=== PATIENT | female | born 1985 | race Caucasian/White ===

== ENCOUNTER → 2016-10-02 | Outpatient (CLI) | payer MEDICARE, MEDICAID ==
[~2016-10-02] MED LIST: AMOXICILLIN875 MG PO; FLEXERIL10 MG PO; INDERAL10 MG PO; KEFLEX 500MG.500 MG PO; MUCINEX FAST-MA1 TAB PO; NOMEDS XX; PREDNISONE 20MG20 MG PO; SEPTRA DS 800 M1 TAB PO; TESSALON PERLE100 MG PO; VISTARIL25 MG PO; ZITHROMAX Z PA250 MG PO
[2016-10-02 11:20] LABS: BUN 8 mg/dL (7-18)
[2016-10-02 11:23] LABS: GFR (ESTIMATED) 73 ML/MIN (59-)
== END ==
LOC: LAB 10:23
PROVIDERS: Nurse Practitioner Family
DX: K76.0 Fatty (change of) liver, not elsewhere classified (principal)

== ENCOUNTER 2017-01-03 09:35 | Emergency (ER) | payer MEDICARE, MEDICAID ==
[~2017-01-03] VITALS: Ht 167.6 cm; Wt 95.3 kg
[~2017-01-03 09:35] MED LIST changes: +BUPROPION HCL300 MG PO
--- OUTSIDE RECORDS SUMMARY | 2017-01-03 09:43 | External Medical Summary Rpt ---
Author Author , CAIN Roque CAIN Address Unknown Phone [email or web address] [place] Care Team Providers Care Branch Examiner Name Role Phone A Whitney CARRILLO MD PSC, Tera Unavailable Unavailable Whitney CARRILLO MD PSC LAURO MARIA DE JESUS, LAURO Unavailable Unavailable MARIA DE JESUS ELOINA, ELOINA Unavailable Unavailable ADDISON, ADDISON Unavailable Unavailable ADDISON ALL, ADDISON ALL Unavailable Unavailable [facility], Unavailable Unavailable [facility] VLADIMIR, VLADIMIR Unavailable Unavailable FRYMAN EUG, FRYMAN Unavailable Unavailable EUG ELLIS RUDDY, ELLIS Unavailable Unavailable RUDDY [facility] Unavailable Unavailable INC, [facility] Unavailable Unavailable HOSPITAL, [facility] Unavailable Unavailable HOSPITAL P, [facility], Unavailable Unavailable [facility] FRANK BLOUNT, FRANK Unavailable Unavailable NAN ILUYOMADE ROT, Unavailable Unavailable ILUYOMADE ROT [facility] Unavailable Unavailable [facility], [facility] KILPELA JEA, KILPELA Unavailable Unavailable JEA JONES PADMAJA, JONES Unavailable Unavailable PADMAJA JONES PADMAJA, JONES Unavailable Unavailable PADMAJA CELESTE, Unavailable Unavailable CELESTE DUVALL PSC, Unavailable Unavailable CINDI DUVALL PSC [facility] Unavailable Unavailable URGENT TREAT, [facility], Unavailable Unavailable PLL, [facility], [facility] SADEK MOH, FRANK MOH Unavailable Unavailable SEMAJ, SEMAJ Unavailable Unavailable Purpose Continuity of Care Document - 07-04-2014 through 2016 Problems Code Diagnosis DOS Provider Status R945 ABNORMAL 08-11-2016 [facility] LIVER INC FUNCTION STUDIES I10 ESSENTIAL 08-01-2016 [facility] HYPERTENSIO INC N J209 ACUTE 08-01-2016 [facility] BRONCHITIS [facility] UNSPECIFIED INC R05 COUGH 08-01-2016 [facility] Z720 TOBACCO USE 08-01-2016 [facility] INC M5431 SCIATICA 07-30-2016 [facility] RIGHT [facility]IDE [facility] INC N838 OTH 07-30-2016 [facility] NONINFLAMM MEDICAL D/O OVARY [facility]AG[facility] ASS FALLOP TUBE & BROAD LIG N912 AMENORRHEA 07-30-2016 [facility]PECIFIED [facility] Q94675 PAIN IN 06-13-2016 [facility] UNSPECIFIED FOOT Q6689 OTHER 06-13-2016 [facility] SPECIFIED CONGENITAL DEFORMITIES OF FEET K22384 PAIN IN 05-09-2016 SEMAJ UNSPECIFIED LIMB R748 ABNORMAL 04-16-2016 [facility] LEVELS [facility] OTHER SERUM INC ENZYMES R109 UNSPECIFIED 04-07-2016 A Whitney CARRILLO ABDOMINAL PSC PAIN R110 NAUSEA 04-07-2016 A Whitney CARRILLO MD PSC R5383 OTHER 04-07-2016 A Whitney CARRILLO FATIGUE PSC H6092 UNSPECIFIED 03-27-2016 [facility] OTITIS PHYSICIANS EXTERNA GROUP LEFT EAR H6903 PATULOUS 03-27-2016 JONES PADMAJA EUSTACHIAN TUBE BILATERAL H9190 UNSPECIFIED 03-27-2016 [facility] HEARING PHYSICIANS LOSS GROUP UNSPECIFIED EAR H7292 UNS 03-14-2016 [facility] PERFORATION PHYSICIANS OF GROUP TYMPANIC MEMBRANE LT EAR H6690 OTITIS 02-21-2016 [facility] MEDIA [facility] UNSPECIFIED INC UNSPECIFIED EAR J328 OTHER 02-21-2016 [facility] CHRONIC [facility]ICAL SINUSITIS [facility] K5900 CONSTIPATIO 07-15-2015 [facility] N [facility], UNSPECIFIED PLLC H9202 OTALGIA 07-14-2015 [facility] LEFT EAR [facility] INC N390 URINARY 07-14-2015 [facility] TRACT [facility]YSICIANS, INFECTION PLLC SITE NOT SPECIFIED R1084 GENERALIZED 07-14-2015 [facility] ABDOMINAL PHYSICIANS, PAIN PLLC R000 TACHYCARDIA 06-25-2015 A Whitney CARRILLO MD PSC UNSPECIFIED R208 OTHER 06-25-2015 A Whitney OWENS MD PSC S OF SKIN SENSATION Q41452 ENCOUNTER 06-25-2015 A Whitney ISIDRO MD PSC SCREENING FOR LIPOID DISORDERS R1030 LOWER 04-10-2015 [facility]BD[facility]INAL [facility] PAIN [facility] UNSPECIFIED 6918 OTHER 01-30-2015 [facility] [place] DERMATITIS URGENT AND RELATED TREAT CONDITIONS 7820 DISTURBANCE 01-30-2015 [facility] OF SKIN COUNT INCLUDES THE [facility] SENSATION URGENT TREAT 7821 RASH AND 01-30-2015 [facility] LOPES COUNT INCLUDES THE [facility] NONSPECIFIC URGENT SKIN TREAT ERUPTION 7244 THORACIC/RODNEY 01-21-2015 [facility] NEURITIS/RA DICULITIS UNSPEC 92431 ACUTE 09-25-2014 [facility] MEDIA 4659 ACUTE URIS 07-06-2014 [facility] P SITE 7862 COUGH 07-06-2014 [facility] P J40 BRONCHITIS, NOT SPECIFIED ACUTE OR CHRONIC R10.9 UNSPECIFIED ABDOMINAL PAIN Medications Na ND Rx Da Fi Fi Am Da Di Ph RX Ph St me C No te ll ll ou ys ag ar # ys at rm s nt no ma ic us Or Da si cy ia de te s n re d BE 69 03 04 15 5 00 HO Ac NZ 38 -1 -0 .0 00 ME ti ON 70 0- 7- 00 06 TO ve AT 11 20 20 08 WN AT 90 17 17 30 E 5 72 PH 10 AR 0 MA MG CY CA OF PS UL CY E NT HI AN A Results Labs Lab Lab Date Result Refere Interp Status Commen Order Detail nces retati t Range on CHLAMYDIA AND GONORRHEA TESTING (07-04-2014 12:00) Chlamyd NEGATIV complet ia 015 E ed trachom 12:00 atis rRNA [Presen ce] in Unspeci fied specime n by Probe & target amplifi cation method Neisser NEGATIV complet ia 015 E ed gonorrh 12:00 oeae rRNA [Presen ce] in Unspeci fied specime n by Probe & target amplifi cation method CHLAMYDIA AND GONORRHEA TESTING (07-04-2014 12:00) COLLECT M.Lonnie complet OR 015 EAGLE, ed 12:00 MENTAL HEALTH WORKER ETHNICI WHITE, complet TY 015 NON-HIS ed 12:00 PANIC KIT complet EXPIRAT 015 015 ed ION 12:00 DATE SYMPTOM NO complet S 015 ed 12:00 REASON INITIAL complet FOR 015 FAMILY ed REQUEST 12:00 PLANNIN G VISIT SPECIME FEMALE complet N 015 ENDOCER ed SOURCE 12:00 VICAL PREGNAN NO complet T 015 ed 12:00 CHART 521-93- complet NUMBER [id number] ed 12:00 Chlamyd Pending complet ia 015 ed trachom 12:00 atis rRNA [Presen ce] in Unspeci fied specime n by Probe & target amplifi cation method Neisser Pending complet ia 015 ed gonorrh 12:00 oeae rRNA [Presen ce] in Unspeci fied specime n by Probe & target amplifi cation method Treponema pallidum IgG Ab [Presence] in Serum by Immunoassay (07-04-2014 11:00) Trepone NON-CLYDE complet ma 015 CTIVE ed pallidu 11:00 m IgG Ab [Presen ce] in Serum by Immunoa ssay Treponema pallidum IgG Ab [Presence] in Serum by Immunoassay (07-04-2014 11:00) COLLECT A. complet OR 015 HILARY, ed 11:00 RN ETHNICI WHITE complet TY 015 ed 11:00 PURPOSE ROUTINE complet OF 015 ed EXAM 11:00 SPECIME BLOOD complet N 015 ed SOURCE 11:00 CHART 521-93- complet NUMBER [id number] ed 11:00 Trepone Pending complet ma 015 ed pallidu 11:00 m IgG Ab [Presen ce] in Serum by Immunoa ssay Procedures Procedure DOS Code Location Performer Comment APPL 52835 [facility]/> AREAS INC INC ULTRASOUN D EA 15 MIN APPLICATI 53107 [facility] ON 7 [facility] MODALITY INC INC 1/> AREAS HOT/COLD PACKS APPL 41061 [facility] 1/> AREAS INC INC TRACTION MECHANICA L APPL 65555 [facility] MODALITY 7 [facility]/> AREAS INC [place] 159[address] [facility] ABDOMINAL 7 [facility] REAL INC INC TIME W/IMAGE LIMITED THERAPEUT 72406 [facility] ANDERS[facility] IC PX 1/> 7 [facility] AREAS INC INC EACH 15 MIN EXERCISES APPL 28509 [facility] MODALITY 7 [facility] 1/> AREAS INC INC ELEC STIMJ UNATTENDE D APPL 59051 [facility] MODALITY 7 [facility] 1/> AREAS INC INC TRACTION MECHANICA L APPLICATI 26402 [facility]ERSEN ON 7 [facility] MODALITY INC INC 1/> AREAS HOT/COLD PACKS APPL 59046 G[facility]ESH [facility] MODALITY 7 [facility] 1/> AREAS INC INC ULTRASOUN D EA 15 MIN RADIOLOGI 88635 [facility] ARSENIO C EXAM 7 [facility] CHEST 2 INC VIEWS FRONTAL&L ATERAL IAADI 07908 [facility] INFLUENZA 7 [facility] B VIRUS INC INC IAADI 98650 [facility] INFFLUENZ 7 [facility] A A VIRUS INC INC RADIOLOGI 71913 [place] [facility] 7 MEDICAL EXAMINATI IMAGING ON CHEST ASS SINGLE VIEW FRONTAL URINE 15344 [facility] 7 [facility] TEST INC INC VISUAL COLOR CMPRSN METHS PHYSICAL 74889 [facility] THERAPY 7 [facility] EVALUATIO INC INC N [place] COM[place] [address] [place] [address] [place] [facility] TRANSVAGI 7 MEDICAL NAL IMAGING ASS THERAPEUT 94680 G[facility] G[facility]ESH IC PX 1/> 7 [facility] AREAS INC INC EACH 15 MIN EXERCISES APPLICATI 93334 [facility] ANDERSEN ON 7 [facility] MODALITY INC INC 1/> AREAS HOT/COLD PACKS APPL 34662 [facility] MODALITY 7 [facility] 1/> AREAS INC INC ELEC STIMJ UNATTENDE D RADEX 54691 SEMAJ DUVALL FOOT 6 COMPLETE MINIMUM 3 VIEWS ANKLE L1902 CINDI Olson ORTH 6 ELOINA DUVALL ANKLE PSC PSC GAUNT/[place] [address] [facility] ABDOMINAL 6 [facility] REAL INC INC TIME W/IMAGE LIMITED URINE 73895 A C KILPELA 6 [place] DIS[place] JEA TEST PSC VISUAL COLOR CMPRSN METHS LIPID 67484 A C KILPELA PANEL 6 [place] DIS[place] JEA PSC HEMOGLOBI 73990 A C KILPELA N 6 [place] DIS[place] JETera GLYCOSYLA PSC JOSEPH A1C COMPRE 70414 KAREN JONES AUDIOMETR 6 PADMAJA PADMAJA Y THRESHOLD EVAL SP RECOGNIJ TYMPANOME 70303 KAREN JONES TRY [address] [place] [address] [facility] ADDISON ALL MAXILLOFA 6 MEDICAL CIAL W/[place] [address] [facility] AD[facility] ALL TRANSVAGI 6 MEDICAL NAL IMAGING ASS PATIENT G8784 [facility] MARIE MOH NOT 6 PHYSICIAN ELIGBL S, PLLC E.G. PT REFUSES URGENT/EM SIT PATIENT G8784 [facility] CORRAL NOT 6 PHYSICIAN RUDDY ELIGBL S, PLLC E.G. PT REFUSES URGENT/[place] [address] [facility] THYROID 6 [facility] STIMULATI INC INC NG HORMONE TSH COMPREHEN 34940 [facility] SIVE 6 [facility] [address] [facility] AMYLASE 6 [place] [address] [facility]ERS[facility] LIPASE 6 [facility] INC INC RADEX ABD 08984 SCOTT ADDISON ALL COMPL 6 MEDICAL AQT ABD IMAGING W/S/E/D ASS VIEWS [address] [place] [address] [facility] THYROXINE 6 [facility] TOTAL INC INC CULTURE 90109 [facility] BACTERIAL 6 [facility] INC INC QUANTTATI VE COLONY COUNT URINE URNLS DIP 90909 [facility]EN 6 [facility] STICK/TAB INC INC LET REAGENT AUTO MICROSCOP Y BLOOD 61177 [facility] COUNT 6 [facility] COMPLETE INC INC AUTO&AUTO DIFRNTL WBC LIPOPROTE 84327 A C FUNMILAYO IN DIR 6 [place] DAVILA IVORY HIGH PSC DENSITY CHOLESTER OL CHOLESTER 50010 A C KILPELA OL 6 [place] DAVIL[place] SERUM/WHO PSC LE BLOOD TOTAL GLUCOSE 31027 A C KILPELA QUANTITAT 6 [place] DAVILA BHARGAVI BLOOD PSC XCPT REAGENT STRIP HEMOGLOBI 16996 A C KILPELA N 6 [place] DAVILA GLYCOSYLA PSC JOSEHP A1C MOST 3044F A C KILPELA RECENT 6 [place] DISLA JETera HEMOGLOBI PSC N A1C LEVEL < 7.0% TRANSFERA 11946 A C KILPELA SE 6 [place] DAV[place] ASPARTATE PSC AMINO AST SGOT TRANSFERA 84202 A C KILPELA SE 6 [place] DAVIL[place] [address] A C KILPELA TRIGLYCER 6 [place] DISLA JETera IDES PSC COLLECTIO 87744 A C KILPELA N VENOUS 6 [place] [address] [facility] AMYLASE 5 [facility] INC INC COMPREHEN 26595 [facility] ANDERSEN SIVE 5 [facility] [place] [address] [place] [facility] ALL ABDOMEN & 5 MEDICAL PELVIS IMAGING W/[place] [address] G[facility] ANDERSEN LIPASE 5 [facility] INC INC BLOOD 45914 [facility] ANDERSEN COUNT 5 [facility] COMPLETE INC INC AUTO&AUTO DIFRNTL WBC URNLS DIP 53896 [facility] ANDERSEN 5 [facility] STICK/TAB INC INC LET REAGENT AUTO MICROSCOP Y URINE 22061 [facility] ANDERSEN 5 [facility] TEST INC INC VISUAL COLOR CMPRSN METHS CT LUMBAR 92032 [facility] [place] [facility] SPINE 5 RADIOLOGY MARIA DE JESUS W/O CONTRAST MATERIAL Encounters Encounter Start End Date Code Location Performer Type Date HOSPITAL [facility] - Angella 7 [facility] T EMERGENCY 54482 G[facility]ESH CESAR 7 7 [facility] T VISIT [facility]OW/MODER SEVERITY HOSPITAL [facility] Perales 7 [facility]erales [facility] T OFFICE 57989 SEMAJ DUVALL [facility] 7 7 T VISIT 15 MINUTES OFFICE 73270 SEMAJ DUVALL OUTPATIEN 6 6 T NEW 30 MINUTES HOSPITAL GANESH - 6 6 [facility] OUTPATIEN INC T OFFICE 55447 Tera Whitney MELLO OUTPATIEN 6 6 [place] DAVILA T VISIT PSC 25 MINUTES OFFICE 14328 [facility] JONES OUTPATIEN 6 6 PHYSICIAN PADMAJA T VISIT S GROUP 10 MINUTES OFFICE 56931 [facility] JONES OUTPATIEN 6 6 PHYSICIAN PADMAJA T VISIT S GROUP 10 MINUTES HOSPITAL G[facility]ESH - 6 6 [facility] OUTPATIEN INC T HOSPITAL GANESH - 6 6 [facility] OUTPATIEN INC T EMERGENCY 79791 [facility] 6 6 PHYSICIAN DEPARTMEN [facility] T VISIT MODERATE SEVERITY EMERGENCY 92495 G[facility]ESH 6 6 [facility] DEPARTMEN [facility] T VISIT LOW/MODER SEVERITY HOSPITAL GANESH - 6 6 [facility] OUTPATIEN INC T EMERGENCY 00292 [facility] RUDDY VISIT [facility] Tera Whitney MELLO OUTPATIEN 6 6 [place] DISLA CECILIATera T NEW PSC MINUTES HOSPITAL GANESH - 5 5 [facility] OUTPATIEN INC T EMERGENCY 48665 [facility] 5 5 [facility] DEPARTMEN [facility] T VISIT MODERATE SEVERITY OFFICE 38228 [facility] OUTPATIEN 5 5 [facility] OFF[facility] 34548 G[facility]ESH JAY OUTPATIEN 5 5 [facility] MINUTES HOSPITAL GANESH - 5 5 [facility] OUTPATIEN INC T EMERGENCY 72846 [facility]ESH 5 5 [facility] DEPARTMEN [facility] T VISIT LOW/MODER SEVERITY EMERGENCY 76974 GANESH TAMAYO 5 5 [facility] T VISIT P LIMITED/M INOR PROB
--- OUTSIDE RECORDS SUMMARY | 2017-01-03 09:43 | External Medical Summary Rpt ---
Author Author , CAIN Roque CAIN Address Unknown Phone [email or web address] Care Team Providers Care Digital Community Manager Name Role Phone A Whitney CARRILLO MD [...] ELLIS RUDDY, ELLIS Unavailable Unavailable RUDDY [facility] Unavailable Unavailable INC, [facility] Unavailable Unavailable HOSPITAL, [facility] Unavailable Unavailable HOSPITAL P, [facility] P [facility], Unavailable Unavailable [facility] FRANK BLOUNT, FRANK Unavailable Unavailable NAN ILUYOMADE ROT, Unavailable Unavailable ILUYOMADE ROT [facility] Unavailable Unavailable IMAGING ASS, [facility] KILPELA JEA, KILPELA Unavailable Unavailable JEA JONES PADMAJA, JONES Unavailable Unavailable PADMAJA JONES PADMAJA, JONES Unavailable Unavailable PADMAJA CELESTE, Unavailable Unavailable CELESTE DUVALL [facility], Unavailable Unavailable CINDI DUVALL PSC [facility] Unavailable Unavailable URGENT TREAT, [facility], Unavailable Unavailable PLL, [facility], [facility] SADEK MOH, FRANK MOH Unavailable Unavailable SEMAJ, SEMAJ Unavailable Unavailable Purpose Continuity of Care Document - 07-04-2014 through 2016 Problems Code Diagnosis DOS Provider Status R945 ABNORMAL 08-11-2016 [facility] LIVER INC FUNCTION STUDIES I10 ESSENTIAL 08-01-2016 [facility] PRIMARY [facility] HYPERTENSIO INC N J209 ACUTE 08-01-2016 [facility] BRONCHITIS [facility] UNSPECIFIED INC R05 COUGH 08-01-2016 [facility] Z720 TOBACCO USE 08-01-2016 [facility] INC M5431 SCIATICA 07-30-2016 [facility] RIGHT SIDE [facility] INC N838 OTH 07-30-2016 [facility] NONINFLAMM MEDICAL D/O OVARY IMAGING ASS FALLOP TUBE & BROAD LIG N912 AMENORRHEA 07-30-2016 [facility] UNSPECIFIED [facility] IMAGING ASS P01251 PAIN IN 06-13-2016 SEMAJ UNSPECIFIED FOOT Q6689 OTHER 06-13-2016 SEMAJ SPECIFIED CONGENITAL DEFORMITIES OF FEET H42741 PAIN IN 05-09-2016 SEMAJ UNSPECIFIED LIMB R748 ABNORMAL 04-16-2016 [facility] LEVELS OF [facility] OTHER SERUM INC ENZYMES R109 UNSPECIFIED 04-07-2016 A Whitney CARRILLO ABDOMINAL PSC PAIN R110 NAUSEA 04-07-2016 A Whitney CARRILLO MD PSC R5383 OTHER 04-07-2016 A Whitney CARRILLO FATIGUE PSC H6092 UNSPECIFIED 03-27-2016 [facility] OTITIS PHYSICIANS EXTERNA GROUP LEFT EAR H6903 PATULOUS 03-27-2016 JONES PADMAJA EUSTACHIAN TUBE BILATERAL H9190 UNSPECIFIED 03-27-2016 [facility] HEARING PHYSICIANS LOSS GROUP UNSPECIFIED EAR H7292 UNS 03-14-2016 [facility] PERFORATION PHYSICIANS OF GROUP TYMPANIC MEMBRANE LT EAR H6690 OTITIS 02-21-2016 [facility] MEDIA [facility] UNSPECIFIED INC UNSPECIFIED EAR J328 OTHER 02-21-2016 [facility] CHRONIC MEDICAL SINUSITIS IMAGING ASS K5900 CONSTIPATIO 07-15-2015 [facility] N [facility], UNSPECIFIED PLLC H9202 OTALGIA 07-14-2015 [facility] LEFT EAR [facility] INC N390 URINARY 07-14-2015 [facility] TRACT [facility]YSIC[facility]ANS, INFECTION PLLC SITE NOT SPECIFIED R1084 GENERALIZED 07-14-2015 [facility] ABDOMINAL [facility]ICIANS, PAIN PLLC R000 TACHYCARDIA 06-25-2015 A Whitney CARRILLO MD PSC UNSPECIFIED R208 OTHER 06-25-2015 A Whitney OWENS MD PSC S OF SKIN SENSATION I46620 ENCOUNTER 06-25-2015 A Whitney ISIDRO MD PSC SCREENING FOR LIPOID DISORDERS R1030 LOWER 04-10-2015 [facility] ABDOMINAL [facility]ICAL PAIN IMAGING ASS UNSPECIFIED 6918 OTHER 01-30-2015 [facility] DERMATITIS URGENT AND RELATED TREAT CONDITIONS 7820 DISTURBANCE 01-30-2015 [facility] OF SKIN [facility] SENSATION URGENT TREAT 7821 RASH AND 01-30-2015 [facility] [place] [facility] NONSPECIFIC URGENT SKIN TREAT ERUPTION 7244 THORACIC/RODNEY 01-21-2015 [facility] [place] [facility] NEURITIS/RA DICULITIS UNSPEC 87798 ACUTE 09-25-2014 [facility] MEDIA 4659 ACUTE URIS 07-06-2014 [facility] UNSPECIFIED HOSPITAL P SITE 7862 COUGH 07-06-2014 [facility] P J40 BRONCHITIS, NOT SPECIFIED ACUTE OR [...] M.Lonnie complet OR 015 [place]AGLE, ed 12:00 MANAGER FRONT ETHNICI WHITE, complet TY 015 NON-HIS ed [...] Procedure DOS Code Location Performer Comment APPL 19921 [facility] MODALITY 7 [facility] 1/> AREAS INC INC ULTRASOUN D EA 15 MIN APPLICATI 16703 G[facility]ESH ANDERSEN ON 7 [facility] MODALITY INC INC 1/> AREAS HOT/COLD PACKS APPL 33726 G[facility]ESH ANDERSEN MODALITY 7 [facility] 1/> AREAS INC INC TRACTION MECHANICA L APPL 18168 G[facility]ESH ANDERSEN MODALITY 7 [facility] 1/> AREAS INC [place] [address] GANESH ANDERSEN ABDOMINAL 7 [facility] REAL INC INC TIME W/IMAGE LIMITED THERAPEUT 32093 GANESH ANDERSEN IC PX 1/> 7 [facility] AREAS INC INC EACH 15 MIN EXERCISES APPL 49959 G[facility]ESH ANDERSEN MODALITY 7 [facility] 1/> AREAS INC INC ELEC STIMJ UNATTENDE D APPL 76632 GANESH ANDERSEN MODALITY 7 [facility] 1/> AREAS INC INC TRACTION MECHANICA L APPLICATI 57734 GANESH ANDERSEN ON 7 [facility] MODALITY INC INC 1/> AREAS HOT/COLD PACKS APPL 52036 GANESH GANESH MODALITY 7 [facility] 1/> AREAS INC INC ULTRASOUN D EA 15 MIN RADIOLOGI 10736 GANESH ARSENIO C EXAM 7 [facility] CHEST 2 INC VIEWS FRONTAL&L ATERAL IAADI 01061 GANESH GANESH INFLUENZA 7 [facility] B VIRUS INC INC IAADI 01176 GANESH ANDERSEN INFFLUENZ 7 [facility] A A VIRUS INC INC RADIOLOGI 27593 [facility] ADDISON C 7 MEDICAL EXAMINATI IMAGING ON CHEST ASS SINGLE VIEW FRONTAL URINE 70459 GANESH ANDERSEN 7 [facility] TEST INC INC VISUAL COLOR CMPRSN METHS PHYSICAL 33883 GANESH ANDERSEN THERAPY 7 [facility] EVALUATIO INC INC N MOD COMPLEX [address] [place] [address] [facility] VLADIMIR TRANSVAGI 7 MEDICAL NAL IMAGING ASS THERAPEUT 26476 GANESH GANESH IC PX 1/> 7 [facility] AREAS INC INC EACH 15 MIN EXERCISES APPLICATI 68575 GANESH ANDERSEN ON 7 [facility] MODALITY INC INC 1/> AREAS HOT/COLD PACKS APPL 76136 GANESH ANDERSEN MODALITY 7 [facility] 1/> AREAS INC INC ELEC STIMJ UNATTENDE D RADEX 71321 SEMAJ DUVALL FOOT 6 COMPLETE MINIMUM 3 VIEWS ANKLE L1902 CINDI Olson ORTH 6 ELOINA DUVALL ANKLE PSC PSC GAUNT/[place] [address] GANESH ANDERSEN ABDOMINAL 6 [facility] REAL INC INC TIME W/IMAGE LIMITED URINE 88902 A C KILPELA 6 [place] DISLA JEA TEST PSC VISUAL COLOR CMPRSN METHS LIPID 64372 A C KILPELA PANEL 6 [place] DISLA JEA PSC HEMOGLOBI 42665 A C KILPELA N 6 [place]ORENA DISLA JETera GLYCOSYLA PSC JOSEPH A1C COMPRE 66241 KAREN JONES AUDIOMETR 6 PADMAJA PADMAJA Y THRESHOLD EVAL SP RECOGNIJ TYMPANOME 28480 KAREN JONES TRY [address] [place] [address] SCOTT ADDISON ALL MAXILLOFA 6 MEDICAL CIAL W/[place] [address] SCOTT ADDISON ALL TRANSVAGI 6 MEDICAL NAL IMAGING ASS PATIENT G8784 [facility] MARIE MOH NOT 6 [facility]YSICIAN ELIGBL S, PLL[facility] E.G. PT REFUSES URGENT/EM SIT PATIENT G8784 [facility] CORRAL NOT 6 PHYSICIAN RUDDY ELIGBL S, PLLC E.G. PT REFUSES URGENT/[place] [address] GANESH ANDERSEN THYROID 6 [facility] STIMULATI INC INC NG HORMONE TSH COMPREHEN 54977 GANESH ANDERSEN SIVE 6 [facility] [place] [address] GANESH ANDERSEN AMYLASE 6 [place] [address] GANESH ANDERSEN LIPASE 6 [facility] INC INC RADEX ABD 31122 SCOTT ADDISON ALL COMPL 6 MEDICAL AQT ABD IMAGING W/S/E/D ASS VIEWS [address] [place] [address] GANESH ANDERSEN THYROXINE 6 [facility] TOTAL INC INC CULTURE 34964 GANESH ANDERSEN BACTERIAL 6 [facility] INC INC QUANTTATI VE COLONY COUNT URINE URNLS DIP 27946 G[facility]ESH ANDERSEN 6 [facility] STICK/TAB INC INC LET REAGENT AUTO MICROSCOP Y BLOOD 37231 GANESH ANDERSEN COUNT 6 [facility] COMPLETE INC INC AUTO&AUTO DIFRNTL WBC LIPOPROTE 75227 A C FUNMILAYO IN DIR 6 LORENA DAVILA IVORY HIGH PSC DENSITY CHOLESTER OL CHOLESTER 82033 A C KILPELA OL 6 [place] DAVILA SERUM/WHO PSC LE BLOOD TOTAL GLUCOSE 12149 A C KILPELA QUANTITAT 6 [facility]ORE[place] DAVILA BHARGAVI BLOOD PSC XCPT REAGENT STRIP HEMOGLOBI 16217 A C KILPELA N 6 LORENA DAVILA GLYCOSYLA PSC JOSEPH A1C MOST 3044F A C KILPELA RECENT 6 [place] DISLA JETera HEMOGLOBI PSC N A1C LEVEL < 7.0% TRANSFERA 34888 A C KILPELA SE 6 [facility] DAVILA ASPARTATE PSC AMINO AST SGOT TRANSFERA 30806 A C KILPELA SE 6 LORENA DAVILA [place] [address] A C KILPELA TRIGLYCER 6 LORENA DISLA JETera IDES PSC COLLECTIO 64907 A C KILPELA N VENOUS 6 LORENA DAVIL[place] [address] GANESH ANDERSEN AMYLASE 5 [facility] INC INC COMPREHEN 73954 GANESH ANDERSEN SIVE 5 [facility] [place] [address] [facility] ADDISON ALL ABDOMEN & 5 MEDICAL PELVIS IMAGING W/[place] [address] GANESH ANDERSEN LIPASE 5 [facility]OS[facility] INC INC BLOOD 15677 GANESH ANDERSEN COUNT 5 [facility] COMPLETE INC INC AUTO&AUTO DIFRNTL WBC URNLS DIP 89517 GANESH ANDERSEN 5 [facility]OS[facility] STICK/TAB INC INC LET REAGENT AUTO MICROSCOP Y URINE 11655 GANESH ANDERSEN 5 [facility] TEST INC INC VISUAL COLOR CMPRSN METHS CT LUMBAR 29180 [facility] [place] [facility] SPINE 5 RADIOLOGY MARIA DE JESUS W/O CONTRAST MATERIAL Encounters Encounter Start End Date Code Location Performer Type Date HOSPITAL G[facility]ESH - Angella 7 [facility] T EMERGENCY 90165 GANESH CESAR 7 7 [facility] T VISIT LOW/MODER SEVERITY HOSPITAL GANESH Perales 7 [facility] GANESH Perales 7 [facility] T OFFICE 07115 SEMAJ DUVALL [facility] 7 7 T VISIT 15 MINUTES OFFICE 69665 SEMAJ DUVALL OUTPATIEN 6 6 T NEW 30 MINUTES HOSPITAL GANESH - 6 6 [facility] OUTPATIEN INC T OFFICE 00436 Tera Whitney MELLO OUTPATIEN 6 6 LORENA DAVILA T VISIT PSC 25 MINUTES OFFICE 55723 [facility] JONES OUTPATIEN 6 6 PHYSICIAN PADMAJA T VISIT S GROUP 10 MINUTES OFFICE 06946 [facility] JONES OUTPATIEN 6 6 PHYSICIAN PADMAJA T VISIT S GROUP 10 MINUTES HOSPITAL GANESH - 6 6 [facility] OUTPATIEN INC T HOSPITAL GANESH - 6 6 [facility] OUTPATIEN INC T EMERGENCY 72756 [facility] MARIE [facility] 6 6 PHYSICIAN DEPARTMEN [facility] T VISIT MODERATE SEVERITY EMERGENCY 50495 GANESH 6 6 [facility]PARTMEN [facility] T VISIT LOW/MODER SEVERITY HOSPITAL GANESH - 6 6 [facility] OUTPATIEN INC T EMERGENCY 14465 [facility]IAN RUDDY VISIT [facility] HIGH SEVERITY& [facility] Tera Whitney MELLO OUTPATIEN 6 6 [place]NA DISLA CECILIATera T NEW PSC MINUTES HOSPITAL GANESH - 5 5 [facility] OUTPATIEN INC T EMERGENCY 25156 GANESH 5 5 [facility] DEPARTMEN [facility] T VISIT MODERATE SEVERITY OFFICE 34112 [facility] MARIE [facility] 5 5 [facility] URGENT MINUTES TREAT OFFICE 80793 GANESH JAY OUTPATIEN 5 5 [facility] NEW 20 HOSPITAL MINUTES HOSPITAL GANESH - 5 5 [facility] OUTPATIEN INC T EMERGENCY 86561 GANESH 5 5 [facility] DEPARTMEN [facility] T VISIT LOW/MODER SEVERITY EMERGENCY 34367 GANESH TAMAYO 5 5 [facility] T VISIT P LIMITED/M INOR PROB
--- OUTSIDE RECORDS SUMMARY | 2017-01-03 09:44 | External Medical Summary Rpt ---
Author Author , CAIN Roque CAIN Address Unknown Phone [email or web address] Care Team Providers Care Hat Copyist Name Role Phone A Whitney CARRILLO MD PSC, Tera Unavailable Unavailable Whitney CARRILLO MD PSC LAURO MARIA DE JESUS, LAURO Unavailable Unavailable ELOINA COLLINS Unavailable Unavailable ADDISON, ADDISON Unavailable Unavailable [facility], Unavailable Unavailable [facility] FRYMAN EUG, FRYMAN Unavailable Unavailable EUG ELLIS RUDDY, ELLIS Unavailable Unavailable RUDDY [facility] Unavailable Unavailable INC, [facility] Unavailable Unavailable HOSPITAL, [facility] Unavailable Unavailable HOSPITAL P, [facility] P [facility], Unavailable Unavailable [facility] FRANK BLOUNT, FRANK Unavailable Unavailable NAN ILUYOMADE ROT, Unavailable Unavailable ILUYOMADE ROT [facility] Unavailable Unavailable IMAGING ASS, [facility] KILPELA JEA, KILPELA Unavailable Unavailable JEA JONES PADMAJA, JONES Unavailable Unavailable PADMAJA JONES PADMAJA, JONES Unavailable Unavailable PADMAJA ARSENIOKENJI, Unavailable Unavailable ARSENIOKENJI DUVALL P[facility], Unavailable Unavailable CINDI DUVALL PSC [facility] Unavailable Unavailable URGENT TREAT, [facility]RGENT [facility], Unavailable Unavailable PLL, [facility], [facility] SADEK MOH, SADEK MOH Unavailable Unavailable SEMAJ, SEMAJ Unavailable Unavailable Purpose Continuity of Care Document - 07-06-2014 through 2016 Problems Code Diagnosis DOS Provider [...] AMENORRHEA 07-30-2016 [facility] UNSPECIFIED [facility] IM[facility]ING ASS [id number] PAIN IN 06-13-2016 SEMAJ UNSPECIFIED FOOT Q6689 OTHER 06-13-2016 SEMAJ SPECIFIED CONGENITAL DEFORMITIES OF FEET E61101 PAIN IN 05-09-2016 SEMAJ UNSPECIFIED LIMB R748 ABNORMAL 04-16-2016 [facility] LEVELS OF MEM [facility]OS[facility] OTHER SERUM INC ENZYMES R109 UNSPECIFIED 04-07-2016 A Whitney CARRILLO ABDOMINAL PSC PAIN R110 NAUSEA 04-07-2016 A Whitney CARRILLO MD PSC R5383 OTHER 04-07-2016 A Whitney CARRILLO FATIGUE PSC H6092 UNSPECIFIED 03-27-2016 [facility] OTITIS PHYSICIANS EXTERNA GROUP LEFT EAR H6903 PATULOUS 03-27-2016 JONES PADMAJA EUSTACHIAN TUBE BILATERAL H9190 UNSPECIFIED 03-27-2016 [facility] HEARING PHYSICIANS LOSS GROUP UNSPECIFIED EAR H7292 UNS 03-14-2016 [facility] PERFORATION PHYSICIANS OF GROUP TYMPANIC MEMBRANE [...] OWENS MD PSC S OF SKIN SENSATION N78550 ENCOUNTER 06-25-2015 A Whitney ISIDRO MD PSC SCREENING FOR LIPOID DISORDERS R1030 LOWER 04-10-2015 [facility] ABDOMINAL [facility] PAIN IMAGING ASS UNSPECIFIED 6918 OTHER 01-30-2015 [facility] DERMATITIS URGENT AND RELATED TREAT CONDITIONS 7820 DISTURBANCE 01-30-2015 [facility] 7821 RASH AND [facility]-30-[facility] ERUPTION 7244 THORACIC/RODNEY 01-21-2015 [facility] NEURITIS/RA DICULITIS UNSPEC 06041 ACUTE 09-25-2014 [facility] MEDIA 4659 ACUTE URIS 07-06-2014 [facility] HOSPITAL P SITE 7862 COUGH 07-06-2014 [facility] P Medications Na ND Rx Da Fi Fi [...] UL CY E NT HI AN A Procedures Procedure DOS Code Location Performer Comment APPL 84002 G[facility]ESH ANDERSEN MODALITY 7 [facility] 1/> AREAS INC INC TRACTION MECHANICA L APPL 42217 GANESH ANDERSEN MODALITY 7 [facility] 1/> AREAS INC INC ELEC STIMJ UNATTENDE D APPLICATI 01322 GANESH ANDERSEN ON 7 [facility] MODALITY INC INC 1/> AREAS HOT/COLD PACKS APPL 10942 GNAESH ANDERSEN MODALITY 7 [facility] 1/> AREAS INC INC ULTRASOUN D EA 15 [place] [address] GANESH ANDERSEN ABDOMINAL 7 [facility] REAL INC INC TIME W/IMAGE LIMITED THERAPEUT 65720 GANESH ANDERSEN IC PX 1/> 7 [facility] AREAS INC INC EACH 15 MIN EXERCISES APPL 75294 GANESH ANDERSEN MODALITY 7 [facility] 1/> AREAS INC INC TRACTION MECHANICA L APPL 14469 GANESH ANDERSEN MODALITY 7 [facility] 1/> AREAS INC INC ELEC STIMJ UNATTENDE D APPL 39290 GANESH ANDERSEN MODALITY 7 [facility] 1/> AREAS INC INC ULTRASOUN D EA 15 MIN APPLICATI 86457 GANESH ANDERSEN ON 7 [facility] MODALITY INC INC 1/> AREAS HOT/COLD PACKS RADIOLOGI 67239 [place] [address] MEDICAL EXAMINATI IMAGING ON CHEST ASS SINGLE VIEW FRONTAL URINE 92235 GANESH ANDERSEN 7 [facility] TEST INC INC VISUAL COLOR CMPRSN METHS RADIOLOGI 12140 GANESH ARSENIO C EXAM 7 [facility] CHEST 2 INC VIEWS FRONTAL&L ATERAL IAADI 33088 GANESH ANDERSEN INFLUENZA 7 [facility] H[facility] B VIRUS INC INC IAADI 26775 GANESH GANESH INFFLUENZ 7 [facility] [place] [address] GANESH BANKSON TRANSVAGI 7 [facility] NAL INC INC THERAPEUT 07503 GANESH ANDERSEN IC PX 1/> 7 [facility] AREAS INC INC EACH 15 MIN EXERCISES PHYSICAL 10180 GANESH ANDRESEN THERAPY 7 [facility] EVALUATIO INC INC N MOD COMPLEX 30 MINS APPL 19413 GANESH ANDERSEN MODALITY 7 [facility] H[facility] 1/> AREAS INC INC ELEC STIMJ UNATTENDE D APPLICATI 60887 GANESH ANDERSEN ON 7 [facility] MODALITY INC INC 1/> AREAS HOT/COLD PACKS RADEX 40837 SEMAJ DUVALL FOOT 6 COMPLETE MINIMUM 3 VIEWS ANKLE L1902 CINDI Olson ORTH 6 ELOINA DUVALL ANKLE PSC PSC GAUNT/[place] [address] GANESH ANDERSEN ABDOMINAL 6 [facility] REAL INC INC TIME W/IMAGE LIMITED LIPID 34516 A C KILPELA PANEL 6 [place] DISLA JEA PSC HEMOGLOBI 70442 A C KILPELA N 6 [place] DISLA JEA GLYCOSYLA PSC JOSEPH A1C URINE 50680 A C KILPELA 6 [place] DISLA JEA TEST PSC VISUAL COLOR CMPRSN METHS COMPRE 51637 KAREN JONES AUDIOMETR 6 PADMAJA PADMAJA Y THRESHOLD EVAL SP RECOGNIJ TYMPANOME 56752 KAREN JONES TRY [address] [place] [address] GANESH ANDERSEN MAXILLOFA 6 [facility] CIAL W/[place] [address] GANESH ANDERSEN TRANSVAGI 6 [facility] NAL INC INC PATIENT G8784 JOVANI MARIE MOH NOT 6 [facility]YSIC[facility] E.G. PT REFUSES URGENT/EM SIT RADEX ABD 67539 GANESH ANDERSEN COMPL 6 [facility] AQT ABD INC INC W/S/E/D VIEWS 1 [place] [address] GANESH ANDERSEN AMYLASE 6 [place] [address] GANESH ANDERSEN THYROXINE 6 [facility] TOTAL INC INC CULTURE 82341 GANESH ANDERSEN BACTERIAL 6 [facility] INC INC QUANTTATI VE COLONY COUNT URINE PATIENT G8784 JOVANI CORRAL NOT 6 PHYSICIAN RUDDY MARYAM S, PLLC E.G. PT REFUSES URGENT/EM SIT COMPREHEN 18897 GANESH ANDERSEN SIVE 6 [facility] METABOLIC INC INC PANEL BLOOD 09079 GANESH ANDERSEN COUNT 6 [facility] COMPLETE INC INC AUTO&[place] [address] GANESH ANDERSEN LIPASE 6 [place] [address] GANESH ANDERSEN THYROID 6 [facility] STIMULATI INC INC NG HORMONE TSH URNLS DIP 63665 G[facility]ESH ANDERSEN 6 [facility] STICK/TAB INC INC LET REAGENT AUTO MICROSCOP Y CHOLESTER 06275 A C KILPELA OL 6 [place] DAVILA SERUM/WHO PSC LE BLOOD TOTAL COLLECTIO 94162 A C KILPELA N VENOUS 6 LORENA DAVILA BLOOD PSC VENIPUNCT URE TRANSFERA 89806 A C KILPELA SE 6 LORENA DAVILA ASPARTATE PSC AMINO AST SGOT TRANSFERA 57518 A C KILPELA SE 6 LORENA DAVILA [place] [address] A C KILPELA TRIGLYCER 6 LORENA DAVILA IDES PSC LIPOPROTE 08441 A C KILPELA IN DIR 6 LORENA DAVILA IVORY HIGH PSC DENSITY CHOLESTER OL MOST 3044F A C KILPELA RECENT 6 LORENA DAVILA HEMOGLOBI PSC N A1C LEVEL < 7.0% GLUCOSE 83814 A C KILPELA QUANTITAT 6 LORENA DAVILA BHARGAVI BLOOD PSC XCPT REAGENT STRIP HEMOGLOBI 01290 Tera MELLO N 6 LORENA DAVILA GLYCOSYLTera [place] [address] GANESH ANDERSEN AMYLASE 5 [facility] INC INC COMPREHEN 92259 GANESH ANDERSEN SIVE 5 [facility] METABOLIC INC INC PANEL URINE 01765 GANESH ANDERSEN 5 [facility] TEST INC [place] [address] GANESH ANDERSEN ABDOMEN & 5 [facility] PELVIS INC INC W/[place] [address] GANESH ANDERSEN LIPASE 5 [facility] INC INC BLOOD 54240 GANESH ANDERSEN COUNT 5 [facility] COMPLETE INC INC AUTO&AUTO DIFRNTL WBC URNLS DIP 45950 GANESH ANDERSEN 5 [facility] HOSP STICK/TAB INC INC LET REAGENT AUTO MICROSCOP Y CT LUMBAR 03486 [facility] [place] [facility] SPINE 5 RADIOLOGY MARIA DE JESUS W/O CONTRAST MATERIAL Encounters Encounter Start End Date Code Location Performer Type Date HOSPITAL GANESH - 7 7 [facility] OUTPATIEN [facility] H[facility]PITAL GANESH - 7 7 [facility] T EMERGENCY 53013 GANESH ARSENIO 7 [address] [facility] T VISIT LOW/MODER SEVERITY HOSPITAL GANESH - 7 7 [facility] 22529 SEMAJ DUVALL OUTPATIEN 7 7 T VISIT 15 MINUTES OFFICE 85832 SEMAJ DUVALL OUTPATIEN 6 6 T NEW 30 MINUTES HOSPITAL GANESH - 6 6 [facility] OUT[facility] T OFFICE 22507 Tera MELLO OUTPATIMANJEET 6 6 [place] DAVILA T VISIT PSC 25 MINUTES OFFICE [id number] [facility] KAREN OUTPATIMANJEET 6 6 PHYSICIAN PADMAJA T VISIT S GROUP 10 MINUTES OFFICE 95593 [facility] KAREN OUTPATIEN 6 6 PHYSICIAN PADMAJA T VISIT S GROUP 10 MINUTES [facility]OSPITAL GANESH - 6 6 [facility] GANESH [facility] 6 6 [facility] INC T EMERGENCY [id number] [facility] 6 6 PHYSICIAN DEPARTMEN , [facility] T VISIT MODERATE SEVERITY EMERGENCY [id number] JOVANI CORRAL DEPT 6 6 PHYSICIAN RUDDY VISIT , [facility] HIGH SEVERITY& THREAT FUNJ EMERGENCY [id number] GANESH 6 6 [facility] DEPARTMEN INC T VISIT LOW/MODER SEVERITY HOSPITAL GANESH - 6 6 [facility] OUTPATIEN INC T OFFICE 40807 Tera MELLO OUTPATIEN [address] [facility] PSC MINUTES EMERGENCY 51175 GANESH 5 5 [facility] T VISIT MODERATE [facility]VERITY HOSPITAL GANESH - 5 5 [facility] OUTPATIEN [facility] T OFFICE 10253 DALTON MARIE OUTPATIEN 5 5 [facility] 30 URGENT MINUT[facility]REAT OFFICE 83452 GANESH JAY OUTPATIEN [address] H[facility]PITAL GANESH - 5 5 [facility] OUTPATIEN [facility] T EMERGENCY 08685 GANESH 5 5 [facility] T VISIT LOW/MODER SEVERITY EMERGENCY 17364 GANESH TAMAYO 5 5 [facility] T [facility]ISIT P LIMITED/M INOR PROB
--- OUTSIDE RECORDS SUMMARY | 2017-01-03 09:44 | External Medical Summary Rpt ---
Author Author , CAIN Roque CAIN Address Unknown Phone [email or web address] Care Team Providers Care Head Of Sales Name Role Phone A Whitney CARRILLO MD PSC, Tera Unavailable Unavailable Whitney CARRILLO MD PSC LAURO MARIA DE JESUS, LAURO Unavailable Unavailable ELOINA COLLINS Unavailable Unavailable ADDISON, ADDISON Unavailable Unavailable [facility], Unavailable Unavailable [facility] FRYMAN EUG, FRYMAN Unavailable Unavailable EUG ELLIS RUDDY, ELLIS Unavailable Unavailable RUDDY [facility] Unavailable Unavailable INC, [facility] Unavailable Unavailable [facility], [facility] Unavailable Unavailable HOSPITAL P, [facility], Unavailable Unavailable [facility] FRANK BLOUNT, FRANK Unavailable Unavailable NAN [facility], Unavailable Unavailable [facility] Unavailable Unavailable IM[facility]ING [facility], [facility] KILPELA JEA, KILPELA Unavailable Unavailable JEA JONES PADMAJA, JONES Unavailable Unavailable PADMAJA JONES PADMAJA, JONES Unavailable Unavailable PADMAJA ARSENIOKENJI, Unavailable Unavailable ARSENIOKENJI DUVALL PSC, Unavailable Unavailable CINDI DUVALL PSC [facility] Unavailable Unavailable [facility], [facility], Unavailable Unavailable PLL, [facility], [facility] SADEK MOH, SADEK MOH Unavailable Unavailable SEMAJ, SEMAJ Unavailable Unavailable Purpose Continuity of Care Document - 07-06-2014 through 2016 Problems Code Diagnosis DOS Provider Status R945 ABNORMAL 08-11-2016 [facility] LIVER INC FUNCTION STUDIES I10 ESSENTIAL 08-01-2016 [facility] PRIMARY [facility] HYPERTENSIO INC N J209 ACUTE 08-01-2016 [facility] BRONCHITIS [facility] UNSPECIFIED INC R05 COUGH 08-01-2016 [facility] Z720 TOBACCO USE 08-01-2016 [facility] INC M5431 SCIATICA 07-30-2016 [facility] RIGHT SIDE [facility] INC N838 OTH 07-30-2016 [facility] [place] NONINFLAMM MEDICAL D/O OVARY IMAGING ASS FALLOP TUBE & BROAD LIG N912 AMENORRHEA 07-30-2016 [facility]PECIF[facility] J79440 PAIN IN 06-13-2016 SEMAJ UNSPECIFIED FOOT Q6689 OTHER 06-13-2016 SEMAJ SPECIFIED CONGENITAL DEFORMITIES OF FEET Z16564 PAIN IN 05-09-2016 SEMAJ UNSPECIFIED LIMB R748 ABNORMAL 04-16-2016 [facility] LEVELS [facility] OTHER SERUM INC ENZYMES R109 UNSPECIFIED 04-07-2016 A Whitney CARRILLO ABDOMINAL PSC PAIN R110 NAUSEA 04-07-2016 A Whitney CARRILLO MD PSC R5383 OTHER 04-07-2016 A Whitney CARRILLO FATIGUE PSC H6092 UNSPECIFIED 03-27-2016 [facility] OTITIS PHYSICIANS EXTERNA GROUP LEFT EAR H6903 PATULOUS 03-27-2016 JONES PADMAJA EUSTACHIAN TUBE BILATERAL H9190 UNSPECIFIED 03-27-2016 [facility] HEARING PHYSICIANS LOSS GROUP UNSPECIFIED EAR H7292 UNS 03-14-2016 [facility] PERFORATION PHYSICIANS OF GROUP TYMPANIC MEMBRANE LT EAR H6690 OTITIS 02-21-2016 [facility] MEDIA [facility] UNSPECIFIED INC UNSPECIFIED EAR J328 OTHER 02-21-2016 [facility] CHRONIC MEDICAL SINUSITIS [facility] ASS K5900 CONSTIPATIO 07-15-2015 [facility] N PHYSICIANS, UNSPECIFIED PLLC H9202 OTALGIA 07-14-2015 [facility] LEFT EAR [facility] INC N390 URINARY 07-14-2015 [facility] TRACT PHYSICIANS, INFECTION PLLC SITE NOT SPECIFIED R1084 GENERALIZED 07-14-2015 [facility] ABDOMINAL PHYSICIANS, PAIN PLLC R000 TACHYCARDIA 06-25-2015 A Whitney CARRILLO MD PSC UNSPECIFIED R208 OTHER 06-25-2015 A Whitney OWENS MD PSC S OF SKIN SENSATION C31265 ENCOUNTER 06-25-2015 A Whitney ISIDRO MD PSC SCREENING FOR LIPOID DISORDERS R1030 LOWER 04-10-2015 [facility] [place] ABD[facility]AL [facility]ICAL PAIN [facility] ASS UNSPECIFIED 6918 OTHER 01-30-[address] [facility] DERMATITIS URGENT AND RELATED TREAT CONDITIONS 7820 DISTURBANCE 01-30-2015 [facility] 7821 RASH AND 01-30-2015 [facility] NONSPECIFIC URGENT [facility] TREAT ERUPTION 7244 THORACIC/RODNEY 01-21-2015 [facility] NEURITIS/RA DICULITIS UNSPEC 80499 ACUTE 09-25-2014 [facility] MEDIA 4659 ACUTE URIS 07-06-2014 [facility] P SITE 7862 COUGH 07-06-2014 [facility] P Medications Na ND Rx Da [...] Procedure DOS Code Location Performer Comment APPL 18711 G[facility] ANDERSEN MODALITY 7 [facility] 1/> AREAS INC INC TRACTION MECHANICA L APPL 16142 [facility] MODALITY 7 [facility] 1/> AREAS INC INC ELEC STIMJ UNATTENDE D APPLICATI 15129 GANESH ANDERSEN ON 7 [facility] MODALITY INC INC 1/> AREAS HOT/COLD PACKS APPL 06288 GANESH ANDERSEN MODALITY 7 [facility] 1/> AREAS INC INC ULTRASOUN D [place] 15 [place] [address] GANESH ANDERSEN ABDOMINAL 7 [facility] REAL INC INC TIME W/IMAGE LIMITED THERAPEUT 49853 GANESH ANDERSEN IC PX 1/> 7 [facility] AREAS INC INC EACH 15 MIN EXERCISES APPL 98130 GANESH ANDERSEN MODALITY 7 [facility] 1/> AREAS INC INC TRACTION MECHANICA L APPL 81910 GANESH ANDERSEN MODALITY 7 [facility] 1/> AREAS INC INC ELEC STIMJ UNATTENDE D APPL 46850 GANESH ANDERSEN MODALITY 7 [facility] 1/> AREAS INC INC ULTRASOUN D EA 15 MIN APPLICATI 37346 GANESH ANDERSEN ON 7 [facility] MODALITY INC INC 1/> AREAS HOT/COLD PACKS RADIOLOGI [address] [place] [address] MEDICAL EXAMINATI IMAGING ON CHEST ASS SINGLE VIEW FRONTAL URINE 92323 G[facility]ESH ANDERSEN 7 [facility] TEST INC INC VISUAL COLOR CMPRSN METHS RADIOLOGI 57303 GANESH ARSENIO C EXAM 7 [facility] CHEST 2 INC VIEWS FRONTAL&L ATERAL IAADI 27135 GANESH ANDERSEN INFLUENZA 7 [facility] B VIRUS INC INC IAADI 42971 GANESH GANESH INFFLUENZ 7 [facility] [place] [address] GANESH BANKSON TRANSVAGI 7 [facility] NAL INC INC THERAPEUT 58855 GANESH ANDERSEN IC PX 1/> 7 [facility] AREAS INC INC EACH 15 MIN EXERCISES PHYSICAL 53018 GANESH ANDERSEN THERAPY 7 [facility] EVALUATIO INC INC N MOD COMPLEX 30 MINS APPL 45725 GANESH ANDERSEN MODALITY 7 [facility] 1/> AREAS INC INC ELEC STIMJ UNATTENDE D APPLICATI 51603 GANESH ANDERSEN ON 7 [facility] MODALITY INC INC 1/> AREAS HOT/COLD PACKS RADEX 56631 SEMAJ DUVALL FOOT 6 COMPLETE MINIMUM 3 VIEWS ANKLE L1902 CINDI Olson ORTH 6 ELOINA DUVALL ANKLE PSC PSC GAUNT/[place] [address] GANESH ANDERSEN ABDOMINAL 6 [facility] REAL INC INC TIME W/IMAGE LIMITED LIPID 98051 A C KILPELA PANEL 6 [place] DISLA JEA PSC HEMOGLOBI 56011 A C KILPELA N 6 L[place] DISLA JEA GLYCOSYLA PSC JOSEPH A1C URINE 51883 A C KILPELA 6 [place] DISLA JEA TEST PSC VISUAL COLOR CMPRSN METHS COMPRE 52052 KAREN JONES AUDIOMETR 6 PADMAJA PADMAJA Y THRESHOLD EVAL SP RECOGNIJ TYMPANOME 25568 KAREN JONES TRY [address] [place] [address] GANESH ANDERSEN MAXILLOFA 6 [facility] CIAL W/[place] [address] GANESH ANDERSEN TRANSVAGI 6 [facility] NAL INC INC PATIENT G8784 [facility] MARIE MOH NOT 6 PHYSICIAN ELIGBL S, PLLC E.G. PT REFUSES URGENT/EM SIT RADEX ABD 09578 GANESH ANDERSEN COMPL 6 [facility] AQT ABD INC INC W/S/E/D VIE[place] [address] [place] [address] GANESH ANDERSEN AMYLASE 6 [place] [address] GANESH ANDERSEN THYROXINE 6 [facility] TOTAL INC INC CULTURE 76557 GANESH ANDERSEN BACTERIAL 6 [facility] INC INC QUANTTATI VE COLONY COUNT URINE PATIENT G8784 JOVANI CORRAL NOT 6 PHYSICIAN RUDDY MARYAM S, PLLC E.G. PT REFUSES URGENT/EM SIT COMPREHEN 36665 GANESH ANDERSEN SIVE 6 [facility] METABOLIC INC INC PANEL BLOOD 45854 GANESH ANDERSEN COUNT 6 [facility] COMPLETE INC INC AUTO&[place] [address] GANESH ANDERSEN LIPASE 6 [place] [address] GANESH ANDERSEN THYROID 6 [facility] STIMULATI INC INC NG HORMONE TSH URNLS DIP 64827 GANESH ANDERSEN 6 [facility] STICK/TAB INC INC LET REAGENT AUTO MICROSCOP Y CHOLESTER 35140 A C KILPELA OL 6 [place] DAVILA SERUM/WHO PSC LE BLOOD TOTAL COLLECTIO 20007 A C KILPELA N VENOUS 6 [place] DAVILA BLOOD PSC VENIPUNCT URE TRANSFERA 48896 A C KILPELA SE 6 [place] DAVILA ASPARTATE PSC AMINO AST SGOT TRANSFERA 16462 A C KILPELA SE 6 [place] DAVILA [place] [address] A C KILPELA TRIGLYCER 6 LORENA DAVILA IDES PSC LIPOPROTE 90522 A C KILPELA IN DIR 6 LORENA DAVILA IVORY HIGH PSC DENSITY CHOLESTER OL MOST 3044F A C KILPELA RECENT 6 LORENA DAVILA HEMOGLOBI PSC N A1C LEVEL < 7.0% GLUCOSE 08205 A C KILPELA QUANTITAT 6 [place] DAVILA BHARGAVI BLOOD PSC XCPT REAGENT STRIP HEMOGLOBI 59676 Tera MELLO N 6 LORENA DAVILA GLYCOSYLTera [place] [address] GANESH ANDERSEN AMYLASE 5 [facility] INC INC COMPREHEN 73000 GANESH ANDERSEN SIVE 5 [facility] METABOLIC INC INC PANEL URINE 12501 GANESH ANDERSEN 5 [facility] TEST INC [place] [address] GANESH ANDERSEN ABDOMEN & 5 [facility] PELVIS INC [place] [address] GANESH ANDERSEN LIPASE 5 [facility] INC INC BLOOD 69942 GANESH ANDERSEN COUNT 5 [facility] COMPLETE INC INC AUTO&AUTO DIFRNTL WBC URNLS DIP 31304 GANESH ANDERSEN 5 [facility] HOSP STICK/TAB INC INC LET REAGENT AUTO MICROSCOP Y CT LUMBAR 34027 [facility] SPINE 5 RADIOLOGY MARIA DE JESUS W/O CONTRAST MATERIAL Encounters Encounter Start End Date Code Location Performer Type Date HOSPITAL GANESH - 7 7 [facility] OUTPATIEN [facility] GANESH - 7 7 [facility] T EMERGENCY 44750 GANESH ARSENIO 7 7 [facility] INC T VISIT LOW/MODER SEVERITY HOSPITAL GANESH - 7 7 [facility] T OFFICE 69788 SEMAJ DUVALL OUTPATIEN 7 7 T VISIT 15 MINUTES OFFICE 11764 SEMAJ DUVALL OUTPATIEN 6 6 T NEW 30 MINUTES HOSPITAL GANESH - 6 6 [facility] OUTPATIEN [facility] T OFFICE 92762 Tera MELLO OUTPATIMANJEET 6 6 LORENA DAVILA T VISIT PSC 25 MINUTES OFFICE 07411 [facility] KAREN OUTPATIMANJEET 6 6 PHYSICIAN PADMAJA T VISIT S GROUP 10 MINUTES OFFICE 09302 [facility] KAREN OUTPATIEN 6 6 PHYSICIAN PADMAJA T VISIT S GROUP 10 MINUTES HOSPITAL GANESH - 6 6 [facility] OUTPATIEN [facility] GANESH - 6 6 [facility] OUTPATIEN INC T EMERGENCY 36539 [facility]IE [facility] 6 6 PHYSICIAN DEPARTMEN , [facility] T VISIT MODERATE SEVERITY EMERGENCY 64778 JOVANI CORRAL DEPT 6 6 PHYSICIAN RUDDY VISIT , [facility] HIGH SEVERITY& THREAT FUNJ EMERGENCY 17792 GANESH 6 6 [facility] DEPARTMEN INC T VISIT LOW/MODER SEVERITY HOSPITAL GANESH - 6 6 [facility] OUTPATIEN INC T OFFICE 62602 Tera MELLO OUTPATIEN 6 6 LORENA DISLA [facility] P[facility] MINUTES EMERGENCY 97157 GANESH 5 5 [facility] T VISIT MODERATE [facility]VERITY HOSPITAL GANESH - 5 5 [facility] OUTPATIEN [facility] T OFFICE 54102 [facility] 5 5 [facility] T[facility] OFF[facility] 40216 GANESH JAY OUTPATIEN [address] HOSPITAL GANESH - 5 5 [facility] OUTPATIEN [facility] T EMERGENCY 05776 GANESH 5 5 [facility] T VISIT LOW/MODER SEVERITY EMERGENCY 85218 GANESH TAMAYO 5 5 [facility] T VISIT P LIMITED/M INOR PROB
--- OUTSIDE RECORDS SUMMARY | 2017-01-03 09:45 | External Medical Summary Rpt ---
Author Author CAIN Braswell, [employer] Organization [employer] Address Unknown Phone Unavailable Results CHLAMYDIA AND GONORRHEA TESTING Observa Value Referen Units Interpr Notes Date tion ce etation Range COLLECT M.F. No No No No Jun 10 OR EAGLE, informa informa informa informa 2015 [employer] tion in tion in tion in tion in 12:00 source source source source PM data data data data ETHNICI WHITE, No No No No Jul 04 TY NON-HIS informa informa informa informa 2015 PANIC tion in tion in tion in tion in 12:00 source source source source PM data data data data KIT No No No No Jul 04 EXPIRAT 015 informa informa informa informa 2015 ION tion in tion in tion in tion in 12:00 DATE source source source source PM data data data data SYMPTOM NO No No No No Jun 10 S informa informa informa informa 2015 tion in tion in tion in tion in 12:00 source source source source PM data data data data REASON INITIAL No No No No Jul 04 FOR FAMILY informa informa informa informa 2015 REQUEST tion in tion in tion in tion in 12:00 PLANNIN source source source source PM G VISIT data data data data SPECIME FEMALE No No No No Jul 04 N ENDOCER informa informa informa informa 2015 SOURCE VICAL tion in tion in tion in tion in 12:00 source source source source PM data data data data PREGNAN NO No No No No Jul 04 T informa informa informa informa 2015 tion in tion in tion in tion in 12:00 source source source source PM data data data data CHART 521-93- No No No No Jul 04 NUMBER [id number] informa informa informa informa 2015 tion in tion in tion in tion in 12:00 source source source source PM data data data data Chlamyd NEGATIV No No No NEGATIV Jul 04 ia E informa informa informa E 2015 trachom tion in tion in tion in RESULT= 12:00 atis source source source WITHIN PM rRNA data data data NORMAL [Presen ce] in LIMITSP Unspeci OSITIVE fied specime RESULT= n by Probe & ABNORMA target LEQUIVO JANAK amplifi RESULT= cation method INDETER MINATEU NSATISF ACTORY RESULT= INVALID Neisser NEGATIV No No No NEGATIV Jul 04 ia E informa informa informa E 2015 gonorrh tion in tion in tion in RESULT= 12:00 oeae source source source WITHIN PM rRNA data data data NORMAL [Presen ce] in LIMITSP Unspeci OSITIVE fied specime RESULT= n by Probe & ABNORMA target LEQUIVO JANAK amplifi RESULT= cation method INDETER MINATEU NSATISF ACTORY RESULT= INVALID THE APTIMA COMBO 2 ASSAY IS NOT INTENDE D FOR THE EVALUAT ION OF SUSPECT EDSEXUA L ABUSE OR FOR OTHER MEDICO- LEGAL INDICAT IONS. FOR THOSE PATIENT S FORWHOM A FALSE POSITIV E RESULT MAY HAVE ADVERSE PSYCHO- SOCIAL IMPACT, [facility] RETESTI NG.\.br \This report contain s patient informa tion that must be protect ed in accorda nce with the Health Insuran ce Portabi lity and Account ability Act. CHLAMYDIA AND GONORRHEA TESTING Observa Value Referen Units Interpr Notes Date tion ce etation Range COLLECT M.F. No No No No Jul 04 OR EAGLE, informa informa informa informa 2015 [employer] tion in tion in tion in tion in 12:00 source source source source PM data data data data ETHNICI WHITE, No No No No Jul 04 TY NON-HIS informa informa informa informa 2015 PANIC tion in tion in tion in tion in 12:00 source source source source PM data data data data KIT No No No No Jul 04 EXPIRAT 015 informa informa informa informa 2015 ION tion in tion in tion in tion in 12:00 DATE source source source source PM data data data data SYMPTOM NO No No No No Jul 04 S informa informa informa informa 2015 tion in tion in tion in tion in 12:00 source source source source PM data data data data REASON INITIAL No No No No Jul 04 FOR FAMILY informa informa informa informa 2015 REQUEST tion in tion in tion in tion in 12:00 PLANNIN source source source source PM G VISIT data data data data SPECIME FEMALE No No No No Jul 04 N ENDOCER informa informa informa informa 2015 SOURCE VICAL tion in tion in tion in tion in 12:00 source source source source PM data data data data PREGNAN NO No No No No Jul 04 T informa informa informa informa 2015 tion in tion in tion in tion in 12:00 source source source source PM data data data data CHART 521-93- No No No No Jul 04 NUMBER [id number] informa informa informa informa 2015 tion in tion in tion in tion in 12:00 source source source source PM data data data data Chlamyd Pending No No No No Jul 04 ia informa informa informa informa 2015 trachom tion in tion in tion in tion in 12:00 atis source source source source PM rRNA data data data data [Presen ce] in Unspeci fied specime n by Probe & target amplifi cation method Neisser Pending No No No \.br\Jul 04 ia informa informa informa is 2015 gonorrh tion in tion in tion in report 12:00 oeae source source source contain PM rRNA data data data s [Presen patient ce] in Unspeci informa fied tion specime that n by must be Probe & target protect ed in amplifi accorda cation nce method with the Health Insuran ce Portabi lity and Account ability Act. Treponema pallidum IgG Ab [Presence] in Serum by Immunoassay Observa Value Referen Units Interpr Notes Date tion ce etation Range COLLECT A. No No No No Jul 04 OR HILARY, informa informa informa informa 2015 RN tion in tion in tion in tion in 11:00 source source source source AM data data data data ETHNICI WHITE No No No No Jul 04 TY informa informa informa informa 2015 tion in tion in tion in tion in 11:00 source source source source AM data data data data PURPOSE ROUTINE No No No No Jul 04 OF informa informa informa informa 2015 EXAM tion in tion in tion in tion in 11:00 source source source source AM data data data data SPECIME BLOOD No No No No Jul 04 N informa informa informa informa 2015 SOURCE tion in tion in tion in tion in 11:00 source source source source AM data data data data CHART 521-93- No No No No Jul 04 NUMBER [id number] informa informa informa informa 2015 tion in tion in tion in tion in 11:00 source source source source AM data data data data Trepone NON-CLYDE No No No METHOD Jul [address] informa informa informa OF 2015 pallidu tion in tion in tion in ANALYSI 11:00 m IgG source source source S: AM Ab data data data EIANORM [Presen AL ce] in RANGE: Serum NON-CLYDE by CTIVE\. Immunoa br\This ssay report contain s patient informa tion that must be protect ed in accorda nce with the Health Insuran ce Portabi lity and Account ability Act. Treponema pallidum IgG Ab [Presence] in Serum by Immunoassay Observa Value Referen Units Interpr Notes Date tion ce etation Range COLLECT A. No No No No Jul 04 OR HILARY, informa informa informa informa 2015 RN tion in tion in tion in tion in 11:00 source source source source AM data data data data ETHNICI WHITE No No No No Jul 04 TY informa informa informa informa 2015 tion in tion in tion in tion in 11:00 source source source source AM data data data data PURPOSE ROUTINE No No No No Jul 04 OF informa informa informa informa 2015 EXAM tion in tion in tion in tion in 11:00 source source source source AM data data data data SPECIME BLOOD No No No No Jul 04 N informa informa informa informa 2015 SOURCE tion in tion in tion in tion in 11:00 source source source source AM data data data data CHART 521-93- No No No No Jul 04 NUMBER [id number] informa informa informa informa 2015 tion in tion in tion in tion in 11:00 source source source source AM data data data data Trepone Pending No No No \.br\Jul 04 ma informa informa informa is 2015 pallidu tion in tion in in report 11:00 m IgG source source source contain AM Ab data data data s [Presen patient ce] in Serum informa by tion Immunoa that ssay must be protect ed in accorda nce with the Health Insuran ce [place] lity and Account ability Act.
--- OUTSIDE RECORDS SUMMARY | 2017-01-03 09:45 | External Medical Summary Rpt ---
Demographics Preferred Language Divehi Marital Status Unknown Moravian Affiliation Unknown Race Unknown Ethnic Group Unknown Author Author CAIN Address Unknown Phone Immunization No patient found.
--- OUTSIDE RECORDS SUMMARY | 2017-01-03 09:45 | External Medical Summary Rpt ---
Demographics Preferred Language Hungarian Marital Status Unknown Hinduism Affiliation Unknown Race Unknown Ethnic Group Unknown Author Author CAIN Address Unknown Phone Immunization No patient found.
--- OUTSIDE RECORDS SUMMARY | 2017-01-03 09:45 | External Medical Summary Rpt ---
Author Author CAIN Braswell, [employer] Organization [employer] Address Unknown Phone Unavailable Results CHLAMYDIA AND GONORRHEA TESTING Observa Value Referen Units Interpr Notes Date tion ce etation Range COLLECT M.F. 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 CHLAMYDIA AND GONORRHEA TESTING Observa Value Referen Units Interpr Notes Date tion ce etation Range COLLECT M.F. 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
--- NOTE | 2017-01-03 09:49 | [facility] Treatment [facility] Report ---
History of Present Issue Date/Time Seen by Provider 01/03/17 0952 Visit Reason Pt arrived:Walked Presenting Problem:PT C/O LEFT SIDE TOOTH PAIN Location if Accident: Onset of symptoms date/time:/ or onset unknown for:MEDICAL HX UNKNOWN Have you (or family members/close friends) recently traveled outside the [place]? N If Yes, where/when: Have you had exposure to infectious disease within the past month? TB? Other? Specify: c/o continued tooth pain. "I am really just here for you to give me something stronger for this pain". Pt seen 12/27 for tooth pain. Dx tooth decay. Rocephin injection, dental balls and told to follow up with dentist. Pt has not followed up. "I have been too busy". Now again, she reports woke up from her sleep w/ tooth pain. Denies fever, malaise, swelling, drainage. Ibuprofen once didn't help. Reports broken over a year. Root canal approx one year ago. Source patient Exam Limitations no limitations ALLERGIES Coded Allergies: No Known Allergies (07/14/15) Home Medications Reported Medications Cyclobenzaprine Hcl (Flexeril) 10 MG PO PRN PRN FOR PAIN OR INC'D TEMP BUPROPION HCL (Bupropion XL) 300 MG PO DAILY #30 History Medical History General CAD? No Angina: No ID: No Hypertension? Yes Hyperlipidemia? Yes CHF? No DVT? No PE? No COPD? No Asthma? No Anemia? No GERD? No Gastric ulcers? No GI Bleed? No Hernia? No Thyroid Problems? No Hypothyroidism? No CVA? No Seizures? No Diabetes? No Insulin Dependent: No Insulin Pump: No Home FSBS? No Renal Insuffiency? No UTI? No Stones? No BPH? No GB Disease: No Nephritic Syndrome? No Asplenia? No Hepatitis? No Sickle Cell Disease? No Arthritis? No Migraines? No Cataracts? No Glaucoma? No MRSA? No HIV? No TB? No Anxiety? No Depression? Yes Cancer? No More? Yes Additional hx: DEG DISC DX Immunization HX DT/Tetanus 1-4 Years Ago Surgical Hx Previous Surgery?Y X2 R FOOT TUBAL Social History Smoking Hx Smoker: Current Every Day Smoker Tobacco: Yes Type Cigarettes Packs/day 1 1/2 - 2 Packs Alcohol Alcohol: No Review of Systems All Other Systems Reviewed and Negative Constitutional see HPI ENT dental caries, other (broken teeth). denies: mouth swelling, tongue swelling, loose teeth. Gastrointestinal denies nausea, denies vomiting Skin denies lumps, denies rash Psychiatric/Neurological denies headache, denies numbness, denies tingling Physical Exam Vital Signs Vital Signs Date Time Temp Pulse Resp B/P Pulse O2 O2 Flow FiO2 Ox Delivery Rate 01/03 0942 97.5 76 16 145/99 98 General Appearance no apparent distress, unkept appearance, obvious body odor Ear, Nose, Throat normal pharynx, bottom right second premolar w/ decay and crown missing, tender to touch w/o sign of redness, swelling, drainage; top right second premolar also w/ decay and crown missing; multiple other teeth w/ decay present, gingivitis Neck non-tender, supple Respiratory Status No: respiratory distress. Cardiovascular no peripheral edema Neurologic alert, oriented x 3 Mental status normal mood/affect Skin normal color, warm/dry Lymphatic no adenopathy Medical Decision Making LABS/Meds/Orders Pt receiving controlled substance in ED? No Results/Orders Current Medication Orders Sig/Pavithra Start time Last Medication Dose Route Stop Time Status Admin Benzocaine/Butamben/ 1 GM ONCE ONE 01/03 1000 DC 01/03 Tetracaine HCl TP 01/03 1001 0954 Lidocaine HCl 15 ML ONCE ONE 01/03 1000 DC 01/03 TP 01/03 1001 0954 Lidocaine HCl 0 .STK-MED ONE 01/03 0955 DC .ROUTE Orders Procedure Date/time Status DENTAL BALL 01/03 0949 Active Departure Departure Time of Disposition 0955 Disposition DC Home or Self Care(routine) Clinical Impression Primary Impression: Tooth decay Condition STABLE Referrals CAMRYN ARNOLD DMD,SARAH FRAZIER DMD,VASU Reich STRONGLY encourage you to follow up with a dentist. I will provide you will a list of local dentist however most will not be open again until Thursday. There is an immediadent clinic, similiar to this walk in clinic but for dental issue, located in [place] on the corner of [facility]. ([address] their number is [phone]. LANG HARDING KEVIN Patient Instructions DI for Dental Pain, DI for Tooth Decay Additional Instructions You HAVE got to follow up with a dentist. We can NOT fix this issue for you and the pain is going to continue until you follow up and the issue is resolved. I will not prescribe narcotics for dental pain. I encourage you to take 650-1000mg tylenol every 6 hours (do not exceed 4000mg in 24 hours) alternating with ibuprofen 600-800mg every 6 hours (do not exceed 3200mg in 24 hours) both as needed for pain along with dental balls, warm moist compresses and prescribed antibiotic. Discharge Counseling Counseled pt/family regarding diagnosis, medications/RX, home care, follow up needs Prescriptions Current Visit Scripts Amoxicillin (Amoxicillin 500MG Tab) 500 MG PO TID #30 TAB at 1006
[2017-01-03] MEDS ORDERED: AMOXICILLIN500 M2 PO (10:01)
[2017-01-03 10:02] VITALS: BP 145/99
== END 2017-01-03 10:09 | disposition home or self-care (01) ==
LOC: UTC 09:35
DX: K02.9 Dental caries, unspecified (principal); I10 Essential (primary) hypertension; Z72.0 Tobacco use